=== PATIENT | male | born 1935 | race Caucasian/White ===

== ENCOUNTER 2022-02-15 10:52 | Inpatient (IN) | payer MEDICARE ==
[~2022-02-15] VITALS: Ht 180.3 cm; Wt 83.1 kg
[2022-02-15 11:54] LABS: BASO % 0.3 % (0.0-2.0); EOS % 0.7 % (0.0-4.0); GRAN # 1.8 K/mm3 (1.4-6.5); GRAN % 63.4 % (42.2-75.2); HEMOGLOBIN 11.3 g/dl (13.5-18.0); LYMPH # 0.8 K/mm3 (1.2-3.4); MEAN CELL VOLUME 82 fl (80.0-100.0); MEAN CORPUSCULAR HEMOGLOBIN 28 pg (27-31); MEAN CORPUSCULAR HGB CONC 34 g/dl (33.0-37.0); MEAN PLATELET VOLUME 10.3 fl (7.4-10.4); MONO # 0.2 K/mm3 (0.1-0.6); MONO % 8.3 % (1.7-9.3); PLATELET COUNT 118 K/mm3 (130-400); RED BLOOD COUNT 4.08 M/mm3 (4.20-5.60); REDCELL DISTRIBUTION WIDTH-CV 14.9 % (11.5-14.5)
[2022-02-15 12:00] LABS: HEMATOCRIT 33.5 % (42.0-52.0)
[2022-02-15 12:01] LABS: ALBUMIN 3.5 gm/dL (3.4-4.8); BILIRUBIN,TOTAL 0.8 mg/dL (0.2-1.2); CALCIUM 8.5 mg/dL (8.4-10.2); CREATININE, serum 0.86 mg/dL (0.72-1.25); POTASSIUM 4.7 mmol/L (3.5-4.5); TOTAL PROTEIN 5.8 gm/dL (6.2-8.1)
[2022-02-15 12:08] LABS: TROPONIN-I 0.022 ng/mL (0.00-0.033)
[2022-02-15 14:48] LABS: OSMOLALITY-URINE random 413 Osm/kg (50-1200)
[2022-02-15 17:11] VITALS: BP 153/73; PULSE 78; TEMP 97.5
[2022-02-15 17:23] LABS: COLLECTION METHOD CLEAN CATCH
[2022-02-15 17:33] LABS: SQUAMOUS EPITHELIAL None Seen /hpf (0-10); URINE BACTERIA None Seen /hpf (NONE SEEN); URINE COLOR Yellow (YELLOW); URINE RBC 0-2 /hpf (0-2)
[2022-02-15 17:34] LABS: URINE APPEARANCE Clear (CLEAR/HAZY); URINE BLOOD Negative (NEGATIVE); URINE GLUCOSE Negative (NEGATIVE); URINE KETONE Negative (NEGATIVE); URINE NITRATE Negative (NEGATIVE); URINE PROTEIN(semi-quant) Negative (NEGATIVE); URINE UROBILINOGEN 0.2 E.U/dL (0.2-1.0)
--- NOTE | 2022-02-15 17:43 | NUR ---
PATIENT A&OX4. WALKS WITH ASSIST 9USES WALKER AT HOME). HISTORY OBTAINTED FROM PATIMICHELLE DAUGHTER, SANDRA. PATIENT ORIENTED TO ROOM. BED ALARM ON, CALL [facility] WITH IN REACH.
--- NOTE | 2022-02-15 18:00 | NUR ---
PATIENT AND HIS DAUGHTER CAN NOT TELL ME HIS HOME MEDS. DAUGHTER STATED SHE ERMIAS BRING A LIST IN TOMORROW MORING.
[2022-02-15 20:38] VITALS: BP 135/79; PULSE 62; TEMP 97.6
[2022-02-16] VITALS (8 sets, daily range): BP systolic 84–144; BP diastolic 48–69; PULSE 64–78; TEMP 97.6–98.6
[2022-02-16 06:37] LABS: BASO % 0.4 % (0.0-2.0); EOS % 0.8 % (0.0-4.0); GRAN # 1.8 K/mm3 (1.4-6.5); GRAN % 68.4 % (42.2-75.2); HEMOGLOBIN 12.1 g/dl (13.5-18.0); LYMPH # 0.6 K/mm3 (1.2-3.4); MEAN CELL VOLUME 81 fl (80.0-100.0); MEAN CORPUSCULAR HEMOGLOBIN 28 pg (27-31); MEAN CORPUSCULAR HGB CONC 35 g/dl (33.0-37.0); MEAN PLATELET VOLUME 9.8 fl (7.4-10.4); MONO # 0.2 K/mm3 (0.1-0.6); MONO % 7.4 % (1.7-9.3); PLATELET COUNT 116 K/mm3 (130-400); RED BLOOD COUNT 4.32 M/mm3 (4.20-5.60); REDCELL DISTRIBUTION WIDTH-CV 14.7 % (11.5-14.5)
[2022-02-16 06:41] LABS: HEMATOCRIT 34.8 % (42.0-52.0)
[2022-02-16 06:53] LABS: CALCIUM 8.6 mg/dL (8.4-10.2); CREATININE, serum 0.83 mg/dL (0.72-1.25); MAGNESIUM 1.3 mg/dL (1.6-2.6)
--- NOTE | 2022-02-16 07:35 | NUR ---
Call received from lab about pt results. Notified to Dr Pimentel (Chl [id number], NA [phone]). No further orders.
--- NOTE | 2022-02-16 08:00 | NUR ---
Patient is resting in bed, alert and oriented x 4, telemetry in place NSR. Denies any pain, nausea, vomiting, dizziness. He did not required oxygen at night. Continue monitoring.
[2022-02-16] MEDS ORDERED: YUPELRI175 MCG/3 IH (10:27)
[2022-02-16] MEDS ORDERED: BASAGLAR K100 UNIT/1 SQ (10:28)
[2022-02-16] MEDS ORDERED: BROVANA15 MCG/2 M IH (10:29)
[2022-02-16] MEDS ORDERED: FARXIGA10 PO ×2 (10:29→10:43)
[2022-02-16] MEDS ORDERED: POTA PO (10:32)
[2022-02-16] MEDS ORDERED: ENTRESTO 49 MG1 EACH PO (10:33)
[2022-02-16] MEDS ORDERED: LIPITOR20 MG PO (10:33)
[2022-02-16] MEDS ORDERED: PARLODEL 2.5MG2.5 MG PO (10:35)
[2022-02-16] MEDS ORDERED: MASON NATURAL1200 MG PO (10:36)
[2022-02-16] MEDS ORDERED: GRALISE300 MG PO (10:39)
[2022-02-16] MEDS ORDERED: LYRICA 150MG C150 MG PO (10:39)
[2022-02-16] MEDS ORDERED: INDERAL40 MG PO (10:42)
[2022-02-16] MEDS ORDERED: CENTRUM SILVER1 CTB PO (10:43)
--- NOTE | 2022-02-16 10:51 | NUR ---
BP retaken supine and WNL. Patient denies any symptoms.
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
--- NOTE | 2022-02-16 18:17 | NUR ---
Patient has been stable along the day. He just complained of pain in his knees. Call made to brittney Roth added and provided. His BP is improving. Warm blanket provided. Report will be given to night RN.
[2022-02-17] VITALS (10 sets, daily range): BP systolic 87–149; BP diastolic 41–86; PULSE 57–100; TEMP 97.3–98.1
--- NOTE | 2022-02-17 05:35 | NUR ---
SHIFT SUMMARY: PATIENT RESTED QUIETLY THIS SHIFT. PATIENT HAD COMPLAINTS OF TREMORS AND REQUESTED PROPANOLOL. ORDERED RECEIVED TO RESTART AND PATIENT REPORTED DECREASED TREMORS AND DECREASE IN TREMORS NOTED WELL. PATIENT ALSO REQUESTED PRN GABAPENTIN FOR BURNING IN FEET AND THIS WAS GIEN AND WAS EFFECTIVE.
[2022-02-17 07:09] LABS: BASO % 0.4 % (0.0-2.0); EOS % 1.3 % (0.0-4.0); GRAN # 1.3 K/mm3 (1.4-6.5); GRAN % 56.7 % (42.2-75.2); HEMOGLOBIN 11.3 g/dl (13.5-18.0); LYMPH # 0.7 K/mm3 (1.2-3.4); LYMPH % 29.9 % (20.0-51.0); MEAN CELL VOLUME 81 fl (80.0-100.0); MEAN CORPUSCULAR HEMOGLOBIN 28 pg (27-31); MEAN CORPUSCULAR HGB CONC 35 g/dl (33.0-37.0); MEAN PLATELET VOLUME 10.6 fl (7.4-10.4); MONO # 0.3 K/mm3 (0.1-0.6); MONO % 11.7 % (1.7-9.3); PLATELET COUNT 124 K/mm3 (130-400); RED BLOOD COUNT 4.03 M/mm3 (4.20-5.60); REDCELL DISTRIBUTION WIDTH-CV 14.8 % (11.5-14.5)
[2022-02-17 07:13] LABS: HEMATOCRIT 32.8 % (42.0-52.0)
[2022-02-17 07:20] LABS: CALCIUM 8.9 mg/dL (8.4-10.2); CREATININE, serum 0.83 mg/dL (0.72-1.25); MAGNESIUM 1.7 mg/dL (1.6-2.6); POTASSIUM 4.6 mmol/L (3.5-4.5)
--- NOTE | 2022-02-17 18:45 | NUR ---
REPORT GIVEN TO NIGHT RN. PT AT THIS TIME WITH NO COMPLAINTS RESTING IN BED,VITALS STABLE BED ALARM ON. BRENDA RN WILL CONTINUE TO CARE.
[2022-02-18 03:55] VITALS: BP 94/51; PULSE 54; TEMP 97.5
--- NOTE | 2022-02-18 06:27 | NUR ---
PATIENT RESTED QUIETLY THIS SHIFT. PATIENT RECEIVED PRN MOTRIN FOR C/O PAIN AND REPORTED EFFECTIVENESS. PATIENT SAT UP TO SIDE OF BED AND HAD A SNACK. PATIENT DENIED CONCERNS.
[2022-02-18 06:41] LABS: BASO % 0.5 % (0.0-2.0); EOS # 0.1 K/mm3 (0.0-0.7); EOS % 1.3 % (0.0-4.0); GRAN # 2.2 K/mm3 (1.4-6.5); GRAN % 58.6 % (42.2-75.2); HEMOGLOBIN 11.7 g/dl (13.5-18.0); LYMPH # 1.1 K/mm3 (1.2-3.4); LYMPH % 29.5 % (20.0-51.0); MEAN CELL VOLUME 81 fl (80.0-100.0); MEAN CORPUSCULAR HEMOGLOBIN 28 pg (27-31); MEAN CORPUSCULAR HGB CONC 35 g/dl (33.0-37.0); MONO # 0.4 K/mm3 (0.1-0.6); MONO % 9.8 % (1.7-9.3); PLATELET COUNT 146 K/mm3 (130-400); RED BLOOD COUNT 4.12 M/mm3 (4.20-5.60); REDCELL DISTRIBUTION WIDTH-CV 15.1 % (11.5-14.5)
[2022-02-18 06:55] LABS: HEMATOCRIT 33.3 % (42.0-52.0)
[2022-02-18 07:08] LABS: ALBUMIN 3.5 gm/dL (3.4-4.8); CALCIUM 8.9 mg/dL (8.4-10.2); CREATININE, serum 1.31 mg/dL (0.72-1.25); MAGNESIUM 1.7 mg/dL (1.6-2.6); POTASSIUM 4.7 mmol/L (3.5-4.5); TOTAL PROTEIN 5.8 gm/dL (6.2-8.1)
[2022-02-18 07:48] LABS: BILIRUBIN,TOTAL 0.5 mg/dL (0.2-1.2)
[2022-02-18 08:58] VITALS: BP 69/37; BP 96/37; PULSE 56; TEMP 97.8
--- NOTE | 2022-02-18 10:06 | NUR ---
Patient up in chair on assessment. No complaints of pain. Alert and oriented. Skin intact. Numbness in feet, historically. Bowel Sounds x4 quads.
[2022-02-18 12:01] VITALS: BP 121/54; PULSE 56; TEMP 98.1
[2022-02-18 16:17] VITALS: BP 101/74; PULSE 70; TEMP 97.7
[2022-02-18 16:18] VITALS: BP 132/52; PULSE 59; TEMP 97.7
--- NOTE | 2022-02-18 18:00 | NUR ---
Patient has had no complaints of pain today. Chose to remain in chair today. Patient has steady and strong gait with walker, however patient is very quick when standing and moving. Education on taking time on sit to stand to prevent orthostatics. Patient plan for possible discharge home tomorrow. No significant events today. Adequate po intake.
[2022-02-18 20:44] VITALS: BP 126/56; PULSE 80; TEMP 97.5
[2022-02-19 00:14] VITALS: BP 101/47; PULSE 66; TEMP 97.7
[2022-02-19 04:17] VITALS: BP 93/49; PULSE 60; TEMP 97.6
--- NOTE | 2022-02-19 06:13 | NUR ---
SHIFT SUMMARY: PATIENT RESTED QUIETLY THIS SHIFT. PATIENT TOLERATED DECREASE IN PROPANOLOL WELL WITH NO TREMORS NOTED AND NO COMPLAINTS FROM PATIENT. PATIENT HAD SNACK APPROX MIDNIGHT. PATIENT HAD NO COMPLAINTS OF PAIN AND RECEIVED NO PRN MEDICATIONS.
[2022-02-19 07:06] LABS: ALBUMIN 3.6 gm/dL (3.4-4.8); BILIRUBIN,TOTAL 0.5 mg/dL (0.2-1.2); CALCIUM 9.3 mg/dL (8.4-10.2); CREATININE, serum 1.22 mg/dL (0.72-1.25); POTASSIUM 4.7 mmol/L (3.5-4.5)
[2022-02-19 07:37] VITALS: BP 94/50; PULSE 72; TEMP 97.7
--- NOTE | 2022-02-19 08:09 | NUR ---
Patient alert and oriented, no complaints of pain. No shortness of breath, or difficulty breathing. Lungs sounds are coarse. Patient ambulates in room with walker, steady gait, and standby guard to and from bathroom. Up in chair early this morning. Plan for possible discharge today with home health.
[2022-02-19] MEDS ORDERED: INDERAL 20MG20 MG PO (09:57)
--- NOTE | 2022-02-19 12:04 | NUR ---
Patient IV removed, discharge instructions given with verbal understanding noted. Patient and daughter escorted out. No complaints or questions.
--- NOTE | 2022-02-19 14:48 | NUR ---
Data Base Administrator attended clinical rounds with the team and patient will discharge today. BOYD met with patient who would like to set up Home Health services. SW provided [email or web address] list of HH agencies and patient chose [facility]. Patient's daughter, Sary is at bedside and is in agreement. Patient will discharge home today with daughter and HH services. BOYD contacted Kameron at [facility] and faxed referral with discharge orders. Kameron advised they can accept patient. Discharge Plan: Home with daughter and HH services
== END 2022-02-19 11:50 | disposition home or self-care (01) | DRG 640 ==
LOC: COL.ER 10:52 → MEDICAL 12:46
PROVIDERS: Personal Emergency Response Attendant; Physician Assistant; ADMIT Hospitalist
DX: E87.1 Hypo-osmolality and hyponatremia (principal); I50.33 Acute on chronic diastolic (congestive) heart failure; J91.8 Pleural effusion in other conditions classified elsewhere; D61.818 Other pancytopenia; N17.9 Acute kidney failure, unspecified; I11.0 Hypertensive heart disease with heart failure; J44.9 Chronic obstructive pulmonary disease, unspecified; R09.02 Hypoxemia; E87.8 Other disorders of electrolyte and fluid balance, not elsewhere classified; D64.9 Anemia, unspecified; R19.7 Diarrhea, unspecified; I95.9 Hypotension, unspecified; E11.40 Type 2 diabetes mellitus with diabetic neuropathy, unspecified; G20 Parkinson's disease; E83.42 Hypomagnesemia; E11.649 Type 2 diabetes mellitus with hypoglycemia without coma; Y92.238 Other place in hospital as the place of occurrence of the external cause; D49.7 Neoplasm of unspecified behavior of endocrine glands and other parts of nervous system; T50.1X5A Adverse effect of loop [high-ceiling] diuretics, initial encounter; Z92.3 Personal history of irradiation; Z99.81 Dependence on supplemental oxygen; Z85.118 Personal history of other malignant neoplasm of bronchus and lung; Z85.819 Personal history of malignant neoplasm of unspecified site of lip, oral cavity, and pharynx; Z98.52 Vasectomy status; Z79.4 Long term (current) use of insulin; Z87.891 Personal history of nicotine dependence
CPT/HCPCS: J1940; J1956; J3475

== ENCOUNTER → 2022-09-26 | Outpatient (REF) | payer MEDICARE ==
[~2022-09-26] MED LIST: BASAGLAR K100 UNIT/1 SQ; BROVANA15 MCG/2 M IH; CENTRUM SILVER1 CTB PO; ENTRESTO 49 MG1 EACH PO; FARXIGA10 PO; GRALISE300 MG PO; INDERAL 20MG20 MG PO; INDERAL40 MG PO; KLOR-CON 88 ME1 PO; LIPITOR20 MG PO; LYRICA 150MG C150 MG PO; MASON NATURAL1200 MG PO; NATURAL POTASS595 MG PO; PARLODEL 2.5MG2.5 MG PO; POTA PO; PROTONIX 40MG T40 MG PO; PULMICORT0.5 MG/2 M IH; SAMSCA15 MG PO; YUPELRI175 MCG/3 IH; ZITHROMAX 250M250 MG PO
[2022-09-26 15:40] LABS: CREATININE, serum 1.29 mg/dL (0.72-1.25); POTASSIUM 4.8 mmol/L (3.5-4.5)
== END ==
LOC: ZCOL.LAB 13:56
PROVIDERS: Family Medicine
DX: Z01.818 Encounter for other preprocedural examination (principal)